=== PATIENT | female | born 1975 | race Caucasian/White ===

== ENCOUNTER → 2017-05-08 | Outpatient (CLI) | payer OTHER ==
[~2017-05-08] MED LIST: 'BUSPAR5 MG PO; ADVAIR 250/501 EA INH; AMOXICILLIN500 MG PO; CLARITIN10 MG PO; CORDROL20 MG PO; DARVOCET N 1001 TAB PO; INDOMETHACIN50 MG PO; MEDROL DOSEPAK4 MG PO; MOTRIN800 MG PO; OMEPRAZOLE40 MG PO; PROAIR HFA8.5 GM IH; PROVENTIL0.09 MG/AC IH; RANITIDINE HYD300 MG PO; ZITHROMAX Z PA250 MG PO; Zofran4 MG PO
== END | disposition home or self-care (01) ==
LOC: US 12:48
DX: N94.6 Dysmenorrhea, unspecified (principal)

== ENCOUNTER → 2017-05-19 | Outpatient (CLI) | payer OTHER | END | disposition home or self-care (01) | LOC: RAD 13:20 | DX: M54.42 Lumbago with sciatica, left side (principal) ==

== ENCOUNTER → 2017-06-05 | Outpatient (CLI) | payer OTHER ==
[~2017-06-05] MED LIST changes: +LISINOPRIL20 MG PO; +MULTIVITAMINS1 EAC5 PO; +POTASSIUM99 M5 PO; +PREDNISONE5 MG PO; +SYMB160 INH
--- NOTE | ~2017-06-05 | ST ---
[place], [place] EXERCISE STRESS TEST REPORT NAME: DEAN SO [facility] #: [id number] UNIT #: [id number] ROOM: DOCTOR: LON CLINE MD BIRTHDATE: [birth year] DOS: 06/05/2017 INDICATIONS: Central chest pain. PROCEDURE: The patient walked for 9 minutes 55 seconds on a full Aric protocol stress test and stopped for fatigue. She achieved a maximum heart rate of 159, which represented 89% of her maximum predicted heart rate at a workload of 10 mets. She did not have chest pain with exercise. The resting and stress electrocardiograms were normal and recovery was normal. Her heart rate increased from 71-159. Blood pressure at rest was 134/80 and increased to 166/88. The Patrick treadmill score was 10 consistent with a low probability of heart disease. IMPRESSION: 1. Excellent exercise capacity without chest pain or diagnostic electrocardiographic changes. 2. Low risk standard stress test without imaging. LON CLINE MD CM:STRESS:EXERCISE STRESS TEST REPORT [id number] LON CLINE MD
--- NOTE | 2017-06-05 10:30 | NUR ---
INFORMED SIGNED CONSENT OBTAINED FOR STANDARD GXT WITH DR CLINE. RESTING EKG NSR HR 71 BP 148/80 IN SUPINE POSITION, STANDING HR 68 BP 134/80. PT COMPLETED 9:55 OF A FRANCIS PROTOCOL WITH PT COMPLETING 0:55 SEC OF STAGE IV AT 4.2 MPH AND A 16% GRADE. PT REACHED A MAXIMUM HR OF 159 WHICH REPRESENTS 89% OF PREDICTED MAXIMUM AND A PEAK BP OF 166/88. NO ARRYTHMIAS OR ST CHANGES NOTED. TEST TERMINATED DUE TO FATIGUE. LAST BP OF 134/72 AND HR OF 94. PT IN STABLE CONDITION, AWAITING NUCLEAR IMAGES.
[2017-06-05 10:39] LABS: BUN 7 mg/dl (7-24); CHLORIDE 108 mmol/L (98-107); CREATININE 0.68 mg/dL (0.55-1.02); POTASSIUM 3.9 mmol/L (3.5-5.1); SODIUM 141 mmol/L (136-145)
== END | disposition home or self-care (01) ==
LOC: LAB 00:20 → CARD 09:00
PROVIDERS: Internal Medicine Cardiovascular Disease
DX: I10 Essential (primary) hypertension (principal); R07.9 Chest pain, unspecified; R01.1 Cardiac murmur, unspecified

== ENCOUNTER → 2017-06-16 | Outpatient (CLI) | payer OTHER | LOC: CARD 14:51 | DX: I10 Essential (primary) hypertension (principal); R01.1 Cardiac murmur, unspecified; E07.9 Disorder of thyroid, unspecified ==

== ENCOUNTER 2018-02-22 11:34 | Emergency (ER) | payer OTHER ==
[~2018-02-22] VITALS: Ht 157.4 cm; Wt 90.7 kg
[2018-02-22] MEDS ORDERED: CHLORZOXAZONE500 M2 PO (12:14)
[2018-02-22] MEDS ORDERED: NAPROSYN500 MG PO (12:14)
== END 2018-02-22 14:17 | disposition home or self-care (01) ==
LOC: ED 11:34
DX: S30.0XXA Contusion of lower back and pelvis, initial encounter (principal); R03.0 Elevated blood-pressure reading, without diagnosis of hypertension; Z79.899 Other long term (current) drug therapy; W10.8XXA Fall (on) (from) other stairs and steps, initial encounter; Y93.89 Activity, other specified; Y92.89 Other specified places as the place of occurrence of the external cause; Y99.8 Other external cause status

== ENCOUNTER 2018-07-16 13:04 | Emergency (ER) | payer OTHER ==
--- NOTE | ~2018-07-16 | EKG ---
[place], [place] ELECTROCARDIOGRAM REPORT NAME: DEAN SO UNIT #: [id number] ROOM: DOCTOR: EPIPHANY DRAFT REPORT BIRTHDATE: [birth year] [facility] Test Date: 2018-07-16 Test Time: 13:10:42 Pat Name: DEAN SO Department: Room: Gender: F Service Clerk: Gladys Guerrero : 1975 Requested By: MARKEL BRANDON Order Number: [id number] Reading MD: Kenan Rod MD Measurements Intervals [place] Rate: 75 P: 36 [place]: 135 QRS: 2 QRSD: 84 T: 5 QT: 361 QTc: 404 Interpretive Statements Sinus rhythm No previous ECG available for comparison Electronically Signed On 07-16-2018 19:42:53 PST by Kenan Rod MD CM:EKGRPT:ELECTROCARDIOGRAM REPORT [id number] MARKEL GOLD DRAFT REPORT MARKEL BRANDON M.D.
[~2018-07-16 13:04] MED LIST changes: +CHLORZOXAZONE500 M2 PO; +NAPROSYN500 MG PO
[2018-07-16 13:30] LABS: BASO # 0.1 10*3/uL (0.0-0.1); BASO % 0.5 % (0.0-1.0); EOS # 0.4 10*3/uL (0.0-0.4); EOS % 3.2 % (1.0-4.0); HEMATOCRIT 35.9 % (37.0-47.0); HEMOGLOBIN 11.8 g/dl (12.0-16.0); LYMPH # 2.4 10*3/uL (1.3-4.4); MEAN CELL VOLUME 86.7 fl (81.0-99.0); MEAN CORPUSCULAR HGB 28.5 pg (27.0-31.0); MEAN CORPUSCULAR HGB CONC 32.9 g/dl (33.0-37.0); MEAN PLATELET VOLUME 8.9 fl (9.6-12.3); MONO # 0.7 10*3/uL (0.1-1.0); MONO % 5.4 % (3.0-9.0); NEUT # 9.2 10*3/uL (2.3-7.9); NEUT % 71.7 % (47.0-73.0); PLATELET COUNT AUTOMATED 362 10*3/uL (130-400); RED BLOOD COUNT 4.14 10*6/uL (4.10-5.10); RED CELL DISTRI WIDTH 13.1 % (0-14.5); WHITE BLOOD COUNT 12.8 10*3/uL (4.8-10.8)
[2018-07-16 13:50] LABS: ALBUMIN 3.3 gm/dl (3.1-4.5); ALKALINE PHOSPHATASE 106 U/L (45-117); BUN 14 mg/dl (7-24); CHLORIDE 108 mmol/L (98-107); CREATININE 0.67 mg/dL (0.55-1.02); SGOT/AST 15 IU/L (3-35); SGPT/ALT 29 U/L (12-78); SODIUM 141 mmol/L (136-145); TOTAL PROTEIN 6.7 gm/dL (6.4-8.2)
[2018-07-16 13:52] LABS: TROPONIN I < 0.015 ng/ml (<0.045)
== END 2018-07-16 14:01 | disposition home or self-care (01) ==
LOC: ED 13:04
PROVIDERS: Nurse Practitioner Family
DX: Z03.89 Encounter for observation for other suspected diseases and conditions ruled out (principal); R03.0 Elevated blood-pressure reading, without diagnosis of hypertension; Z79.899 Other long term (current) drug therapy

== ENCOUNTER → 2018-08-03 | Outpatient (CLI) | payer OTHER | END | disposition home or self-care (01) | LOC: RAD 12:13 | DX: J20.9 Acute bronchitis, unspecified (principal); J45.909 Unspecified asthma, uncomplicated ==

== ENCOUNTER → 2019-06-06 | Outpatient (CLI) | payer OTHER | END | disposition home or self-care (01) | LOC: CT 12:58 | DX: S06.9X9A Unspecified intracranial injury with loss of consciousness of unspecified duration, initial encounter (principal); R51 Headache; R55 Syncope and collapse; W19.XXXA Unspecified fall, initial encounter; Y93.89 Activity, other specified; Y92.89 Other specified places as the place of occurrence of the external cause; Y99.8 Other external cause status ==

== ENCOUNTER 2019-06-16 09:25 | Inpatient (IN) | payer OTHER ==
[~2019-06-16] VITALS: Ht 157.4 cm; Wt 89.0 kg
[2019-06-16 09:26] VITALS: BP 142/80
[2019-06-16 10:06] LABS: BASO % 0.3 % (0.0-1.0); EOS # 0.2 10*3/uL (0.0-0.4); EOS % 1.4 % (1.0-4.0); HEMOGLOBIN 13.5 g/dl (12.0-16.0); LYMPH # 1.7 10*3/uL (1.3-4.4); LYMPH % 13.4 % (27.0-41.0); MEAN CELL VOLUME 87.5 fl (81.0-99.0); MEAN CORPUSCULAR HGB 28.1 pg (27.0-31.0); MEAN CORPUSCULAR HGB CONC 32.1 g/dl (33.0-37.0); MEAN PLATELET VOLUME 9.3 fl (9.6-12.3); MONO # 0.6 10*3/uL (0.1-1.0); MONO % 4.9 % (3.0-9.0); NEUT # 10.3 10*3/uL (2.3-7.9); NEUT % 79.7 % (47.0-73.0); PLATELET COUNT AUTOMATED 340 10*3/uL (130-400); RED CELL DISTRI WIDTH 13.3 % (0-14.5)
[2019-06-16 10:19] LABS: ACT PARTIAL THROMBO TIME 24.7 SECONDS (20.0-32.1); INTERNATIONAL NORM RATIO 0.9 (2.0-3.5)
[2019-06-16 10:26] LABS: ALBUMIN 3.6 gm/dl (3.1-4.5); BUN 8 mg/dl (7-24); CHLORIDE 109 mmol/L (98-107); CREATININE 0.78 mg/dL (0.55-1.02); LIPASE 58 U/L (73-393); POTASSIUM 3.5 mmol/L (3.5-5.1); SGOT/AST 20 IU/L (3-35); SGPT/ALT 41 U/L (12-78); SODIUM 143 mmol/L (136-145); TOTAL PROTEIN 7.2 gm/dL (6.4-8.2)
[2019-06-16 10:27] LABS: ALKALINE PHOSPHATASE 124 U/L (45-117)
[2019-06-16 11:11] LABS: BILIRUBIN NEGATIVE (NEGATIVE); BLOOD NEGATIVE (NEGATIVE); COLOR YELLOW (YELLOW); GLUCOSE NEGATIVE (NEGATIVE); KETONE NEGATIVE (NEGATIVE); LEUKO ESTERASE NEGATIVE (NEGATIVE); NITRITE NEGATIVE (NEGATIVE); PH 6.5 (5.0-9.0); SPECIFIC GRAVITY <= 1.005 (1.005-1.030); UROBILINOGEN 0.2 E.U./dl (0.2-1.0)
[2019-06-16 11:12] LABS: CLARITY CLEAR (CLEAR)
[2019-06-16 11:28] LABS: BACTERIA 1+
[2019-06-16 11:50] LABS: TROPONIN I < 0.015 ng/ml (<0.045)
[2019-06-16] MEDS ORDERED: LIPITOR10 MG PO (13:28)
[2019-06-16] MEDS ORDERED: IRON325 M1 PO (13:29)
[2019-06-16] MEDS ORDERED: OMEPRAZOLE40 MG PO (13:32)
[2019-06-16] MEDS ORDERED: CALCIUM500 M1 PO (13:33)
[2019-06-16] MEDS ORDERED: FISH OIL 1,0001 EAC2 PO (13:33)
[2019-06-16 13:45] VITALS: BP 159/67
--- NOTE | 2019-06-16 13:55 | NUR ---
A 43, admitted to , under the services of VERNON Majano DO with a diagnosis of SYNCOPE AND COLLAPSE. Chief complaint is SYNCOPE AND COLLAPSE. Patient arrived via stretcher from ER. Monitor applied. Initial assessment completed. Vital signs taken and recorded. VERNON MAJANO DO notified of admission to the unit. Orders received. See assessment for past medical history, medications and allergies. Patient and/or family oriented to unit. [address] visitation policy reviewed. Clothing/patient valuable form completed. JENN VALLADARES
[2019-06-16 16:00] VITALS: BP 134/86
[2019-06-16 20:00] VITALS: BP 151/88
--- NOTE | 2019-06-16 20:31 | NUR ---
PT MEDICATED W/NORCO FOR C/O H/A AND RT EYE PAIN 11/22. RT EYE BLACK AND SWOLLEN. NO C/O DIZZINESS AT PRESENT TIME. CALL LIGHT IN REACH.
[2019-06-17] VITALS: BP 148/68
--- NOTE | 2019-06-17 04:42 | NUR ---
24 HR chart check completed.
[2019-06-17 05:59] LABS: BASO # 0.1 10*3/uL (0.0-0.1); BASO % 0.4 % (0.0-1.0); EOS # 0.3 10*3/uL (0.0-0.4); EOS % 2.3 % (1.0-4.0); HEMATOCRIT 38.8 % (37.0-47.0); HEMOGLOBIN 12.3 g/dl (12.0-16.0); LYMPH # 2.6 10*3/uL (1.3-4.4); LYMPH % 21.7 % (27.0-41.0); MEAN CELL VOLUME 88.8 fl (81.0-99.0); MEAN CORPUSCULAR HGB 28.1 pg (27.0-31.0); MEAN CORPUSCULAR HGB CONC 31.7 g/dl (33.0-37.0); MEAN PLATELET VOLUME 9.9 fl (9.6-12.3); MONO # 0.8 10*3/uL (0.1-1.0); MONO % 6.4 % (3.0-9.0); NEUT # 8.2 10*3/uL (2.3-7.9); NEUT % 68.9 % (47.0-73.0); PLATELET COUNT AUTOMATED 308 10*3/uL (130-400); RED BLOOD COUNT 4.37 10*6/uL (4.10-5.10); RED CELL DISTRI WIDTH 13.7 % (0-14.5); WHITE BLOOD COUNT 11.9 10*3/uL (4.8-10.8)
[2019-06-17 06:11] LABS: BUN 10 mg/dl (7-24); CHLORIDE 115 mmol/L (98-107); CHOLESTEROL 160 mg/dL (<200); CREATININE 0.71 mg/dL (0.55-1.02); HDL CHOLESTEROL 44 mg/dl (40-60); LDL CHOLESTEROL 98 mg/dL (9-159); POTASSIUM 3.7 mmol/L (3.5-5.1); SODIUM 148 mmol/L (136-145); TRIGLYCERIDES 92 mg/dl (<150); VLDL CHOLESTEROL 18 mg/dL (6-40)
[2019-06-17 06:38] LABS: ACT PARTIAL THROMBO TIME 26.1 SECONDS (20.0-32.1); INTERNATIONAL NORM RATIO 0.9 (2.0-3.5)
[2019-06-17 07:08] LABS: VITAMIN D, 25-HYDROXY 37.6 ng/mL (30-100)
--- NOTE | 2019-06-17 07:54 | NUR ---
PHYSICAL THERAPY Screen received as well as orders for PT will follow thank you Bailee Madison PT
[2019-06-17 08:00] VITALS: BP 152/86
--- NOTE | 2019-06-17 09:22 | NUR ---
ORTHO STATIC BP NEGATIVE. NOTIFIED.
[2019-06-17 12:00] VITALS: BP 144/84
--- NOTE | 2019-06-17 12:48 | NUR ---
Production Aide in to talk to patient. Patient states lives at HOME with MOTHER. There are OUTSIDE steps in the home. Physician: FERMIN Pharmacy: [facility] health services: NONE Patient's level of ADLs: INDEPENDENT Patient has working utilities: YES DME: NONE Follow-up physician's appointment after d/c: WILL BE MADE BY HOSPITALIST NURSE DIRECTOR ON DISCHARGE Does patient want to access PORTAL?: NO Discharge plan PT LIVES AT HOME WITH MOTHER AND IS INDEPENDENT IN HER CARE. DENEIS SHE WILL HAVE ANY NEEDS ON DISCAHRGE. PT PLANS TO RETURN HOME WHEN MEDICALLY STABLE. WILL CONTINUE TO FOLLOW. WILL HAVE A RIDE HOME ON DISCHARGE.. CECILE SINHA
--- NOTE | 2019-06-17 13:40 | NUR ---
Discharge instructions reviewed with patient/family. Patient receptive and verbalizes understanding. Follow-up care arranged. Written instructions given to patient/family. GALEN FERGUSON
== END 2019-06-17 13:40 | disposition home or self-care (01) | DRG 204 ==
LOC: ED 09:25 → EDHOLD 11:59 → 4E 11:59
PROVIDERS: Nurse Practitioner Family; ADMIT Internal Medicine
DX: I95.1 Orthostatic hypotension (principal); I10 Essential (primary) hypertension; E78.5 Hyperlipidemia, unspecified; R00.1 Bradycardia, unspecified; M43.02 Spondylolysis, cervical region; D72.829 Elevated white blood cell count, unspecified; E55.9 Vitamin D deficiency, unspecified; Z91.02 Food additives allergy status; Z82.49 Family history of ischemic heart disease and other diseases of the circulatory system; Z83.3 Family history of diabetes mellitus; Z82.5 Family history of asthma and other chronic lower respiratory diseases; R00.2 Palpitations

== ENCOUNTER 2020-04-05 11:27 | Emergency (ER) | payer OTHER ==
[~2020-04-05] VITALS: Wt 87.5 kg
== END 2020-04-05 14:03 | disposition home or self-care (01) ==
LOC: ED 11:27
DX: T78.40XA Allergy, unspecified, initial encounter (principal); Z79.899 Other long term (current) drug therapy; X58.XXXA Exposure to other specified factors, initial encounter

== ENCOUNTER 2020-10-23 06:45 | Emergency (ER) | payer OTHER ==
[~2020-10-23] VITALS: Ht 162.5 cm; Wt 86.2 kg
[~2020-10-23 06:45] MED LIST changes: +CALCIUM500 M1 PO; +FISH OIL 1,0001 EAC2 PO; +IRON325 M1 PO; +LIPITOR10 MG PO; +PREDNISONE50 MG PO
== END 2020-10-23 07:07 | disposition home or self-care (01) ==
LOC: ED 06:45
DX: L23.7 Allergic contact dermatitis due to plants, except food (principal); Z91.018 Allergy to other foods; Z79.899 Other long term (current) drug therapy; Z98.890 Other specified postprocedural states

== ENCOUNTER → 2021-06-06 | Outpatient (CLI) | payer OTHER | END | disposition home or self-care (01) | LOC: US 09:59 → MAMMO 11:00 | PROVIDERS: ATTEND Obstetrics & Gynecology | DX: Z12.31 Encounter for screening mammogram for malignant neoplasm of breast (principal); N92.6 Irregular menstruation, unspecified ==

== ENCOUNTER 2021-06-15 10:25 | Emergency (ER) | payer OTHER ==
[~2021-06-15] VITALS: Wt 93.4 kg
[2021-06-15 10:59] LABS: BASO # 0.1 10*3/uL (0.0-0.1); BASO % 0.4 % (0.0-1.0); EOS # 0.2 10*3/uL (0.0-0.4); EOS % 1.9 % (1.0-4.0); HEMATOCRIT 39.7 % (37.0-47.0); LYMPH # 2.2 10*3/uL (1.3-4.4); LYMPH % 17.6 % (27.0-41.0); MEAN CELL VOLUME 86.1 fl (81.0-99.0); MEAN CORPUSCULAR HGB 27.1 pg (27.0-31.0); MEAN CORPUSCULAR HGB CONC 31.5 g/dl (33.0-37.0); MEAN PLATELET VOLUME 8.8 fl (9.6-12.3); MONO # 0.6 10*3/uL (0.1-1.0); MONO % 4.7 % (3.0-9.0); NEUT # 9.2 10*3/uL (2.3-7.9); NEUT % 75.1 % (47.0-73.0); PLATELET COUNT AUTOMATED 354 10*3/uL (130-400); RED BLOOD COUNT 4.61 10*6/uL (4.10-5.10); RED CELL DISTRI WIDTH 13.3 % (0-14.5); WHITE BLOOD COUNT 12.3 10*3/uL (4.8-10.8)
[2021-06-15 11:12] LABS: BUN 11 mg/dl (7-24); CHLORIDE 110 mmol/L (98-107); CREATININE 0.73 mg/dL (0.55-1.02); POTASSIUM 4.5 mmol/L (3.5-5.1); SODIUM 141 mmol/L (136-145)
== END 2021-06-15 11:46 | disposition home or self-care (01) ==
LOC: ED 10:25
PROVIDERS: Emergency Medicine
DX: N93.8 Other specified abnormal uterine and vaginal bleeding (principal); E78.5 Hyperlipidemia, unspecified; I10 Essential (primary) hypertension; Z79.899 Other long term (current) drug therapy

== ENCOUNTER → 2021-06-27 | Outpatient (CLI) | payer OTHER | LOC: US 10:45 | PROVIDERS: ATTEND Obstetrics & Gynecology | DX: N63.0 Unspecified lump in unspecified breast (principal); R92.8 Other abnormal and inconclusive findings on diagnostic imaging of breast ==

== ENCOUNTER → 2022-09-22 | Outpatient (CLI) | payer OTHER | END | disposition home or self-care (01) | LOC: COVID19 09:27 | PROVIDERS: ATTEND Internal Medicine | DX: Z20.822 Contact with and (suspected) exposure to COVID-19 (principal) ==

== ENCOUNTER 2023-08-03 14:31 | Emergency (ER) | payer OTHER ==
[~2023-08-03] VITALS: Ht 157.4 cm; Wt 88.9 kg
[2023-08-03] MEDS ORDERED: LISINOPRIL10 M1 PO (15:16)
[2023-08-03] MEDS ORDERED: Dexamethasone Sodium Phospha 20 MG/5 ML VIAL IM ONE (16:45)
[2023-08-03] MEDS ORDERED: KENALOG 0.1%80 GM T (16:48)
[2023-08-03] MEDS ORDERED: PREDNISONE20 M1 PO (16:48)
[2023-08-03] MEDS ORDERED: diphenhydrAMINE hydrochloride 50 MG/ML VIAL IM ONE (16:50)
== END 2023-08-03 17:36 | disposition home or self-care (01) ==
LOC: ED 14:31
DX: L25.9 Unspecified contact dermatitis, unspecified cause (principal); J45.909 Unspecified asthma, uncomplicated; E78.00 Pure hypercholesterolemia, unspecified; M10.9 Gout, unspecified; K21.9 Gastro-esophageal reflux disease without esophagitis; Z91.013 Allergy to seafood; Z91.018 Allergy to other foods; Z98.890 Other specified postprocedural states

== ENCOUNTER 2023-11-23 08:55 | Emergency (ER) | payer OTHER ==
[~2023-11-23] VITALS: Ht 157.4 cm; Wt 88.9 kg
[~2023-11-23 08:55] MED LIST changes: +KENALOG 0.1%80 GM T; +LISINOPRIL10 M1 PO; +PREDNISONE20 M1 PO
[2023-11-23] MEDS ORDERED: BIOTIN5000 MC2 PO (09:07)
[2023-11-23] MEDS ORDERED: IBU400 M1 PO (09:08)
[2023-11-23] MEDS ORDERED: VENT7GM INH (10:25)
[2023-11-23] MEDS ORDERED: PREDNISONE10 MG PO (10:25)
== END 2023-11-23 10:38 | disposition home or self-care (01) ==
LOC: ED 08:55
DX: J45.901 Unspecified asthma with (acute) exacerbation (principal); Z20.822 Contact with and (suspected) exposure to COVID-19; B34.9 Viral infection, unspecified; K21.9 Gastro-esophageal reflux disease without esophagitis; M10.9 Gout, unspecified; Z88.8 Allergy status to other drugs, medicaments and biological substances; Z91.013 Allergy to seafood; Z98.890 Other specified postprocedural states

== ENCOUNTER → 2024-07-25 | Outpatient (CLI) | payer OTHER ==
[~2024-07-25] MED LIST changes: +BIOTIN5000 MC2 PO; +IBU400 M1 PO; +PREDNISONE10 MG PO; +VENT7GM INH
[2024-07-25 14:19] LABS: BASO # 0.1 10*3/uL (0.0-0.1); BASO % 0.5 % (0.0-1.0); EOS # 0.4 10*3/uL (0.0-0.4); EOS % 2.6 % (1.0-4.0); HEMATOCRIT 40.2 % (37.0-47.0); MEAN CORPUSCULAR HGB 27.5 pg (27.0-31.0); MEAN CORPUSCULAR HGB CONC 31.6 g/dl (33.0-37.0); MEAN PLATELET VOLUME 8.9 fl (9.6-12.3); MONO # 0.7 10*3/uL (0.1-1.0); MONO % 5.1 % (3.0-9.0); NEUT # 10.4 10*3/uL (2.3-7.9); PLATELET COUNT AUTOMATED 344 10*3/uL (130-400); RED BLOOD COUNT 4.62 10*6/uL (4.10-5.10); RED CELL DISTRI WIDTH 13.2 % (0-14.5); WHITE BLOOD COUNT 14.1 10*3/uL (4.8-10.8)
[2024-07-25 14:53] LABS: ALKALINE PHOSPHATASE 109 U/L (46-116); BUN 11 mg/dl (9-23); CHLORIDE 106 mmol/L (98-107); CHOLESTEROL 209 mg/dL (<200); LDL CHOLESTEROL 110 mg/dL (9-159); POTASSIUM 4.1 mmol/L (3.4-5.1); SGPT/ALT 20 U/L (5-49); TRIGLYCERIDES 255 mg/dl (<150)
[2024-07-25 14:55] LABS: VITAMIN D, 25-HYDROXY 38.2 ng/mL (30-100)
== END | disposition home or self-care (01) ==
LOC: RESCLI 13:02
PROVIDERS: Student in an Organized Health Care Education/Training Program; ATTEND Family Medicine
DX: J45.909 Unspecified asthma, uncomplicated (principal); I10 Essential (primary) hypertension; R53.83 Other fatigue; L29.9 Pruritus, unspecified; K21.9 Gastro-esophageal reflux disease without esophagitis; E78.5 Hyperlipidemia, unspecified; E56.9 Vitamin deficiency, unspecified; M19.90 Unspecified osteoarthritis, unspecified site; Z79.899 Other long term (current) drug therapy; Z88.8 Allergy status to other drugs, medicaments and biological substances

== ENCOUNTER 2024-09-11 16:25 | Emergency (ER) | payer OTHER ==
[2024-09-11] MEDS ORDERED: ACETAMINOPHEN 325 MG TAB PO ONE (16:45)
[2024-09-11] MEDS ORDERED: NAPROSYN500 MG PO (17:40)
== END 2024-09-11 17:50 | disposition home or self-care (01) ==
LOC: ED 16:25
DX: S56.912A Strain of unspecified muscles, fascia and tendons at forearm level, left arm, initial encounter (principal); Z91.018 Allergy to other foods; Z79.899 Other long term (current) drug therapy; X50.3XXA Overexertion from repetitive movements, initial encounter; Y93.89 Activity, other specified; Y92.89 Other specified places as the place of occurrence of the external cause; Y99.8 Other external cause status

== ENCOUNTER → 2024-09-20 | Outpatient (CLI) | payer OTHER | END | disposition home or self-care (01) | LOC: MAMMO 03:23 | PROVIDERS: ATTEND Nurse Practitioner Women's Health | DX: Z12.31 Encounter for screening mammogram for malignant neoplasm of breast (principal); R92.323 Mammographic fibroglandular density, bilateral breasts; R10.2 Pelvic and perineal pain ==

== ENCOUNTER → 2024-09-28 | Outpatient (CLI) | payer OTHER | END | disposition home or self-care (01) | LOC: RESCLI 01:19 | PROVIDERS: ATTEND Internal Medicine | DX: M19.90 Unspecified osteoarthritis, unspecified site (principal); I10 Essential (primary) hypertension; K21.9 Gastro-esophageal reflux disease without esophagitis; J30.81 Allergic rhinitis due to animal (cat) (dog) hair and dander; E56.9 Vitamin deficiency, unspecified; E78.5 Hyperlipidemia, unspecified; L29.9 Pruritus, unspecified ==

== ENCOUNTER 2024-11-19 21:07 | Emergency (ER) | payer OTHER ==
[~2024-11-19] VITALS: Ht 157.4 cm; Wt 89.8 kg
[2024-11-19] MEDS ORDERED: METHOCARBAMOL750 M1 PO (21:43)
[2024-11-19] MEDS ORDERED: Acetaminophen/Hydrocodone 5 MG/325 MG TABLET PO ONE (21:45)
== END 2024-11-19 21:54 | disposition home or self-care (01) ==
LOC: ED 21:07
DX: S39.011A Strain of muscle, fascia and tendon of abdomen, initial encounter (principal); J45.909 Unspecified asthma, uncomplicated; E78.5 Hyperlipidemia, unspecified; I10 Essential (primary) hypertension; Z91.048 Other nonmedicinal substance allergy status; Z79.899 Other long term (current) drug therapy; Z98.890 Other specified postprocedural states; X50.0XXA Overexertion from strenuous movement or load, initial encounter; Y93.89 Activity, other specified; Y92.89 Other specified places as the place of occurrence of the external cause; Y99.8 Other external cause status

== ENCOUNTER 2024-12-31 16:17 | Emergency (ER) | payer OTHER ==
[~2024-12-31] VITALS: Ht 157.4 cm; Wt 89.4 kg
[~2024-12-31 16:17] MED LIST changes: +METHOCARBAMOL750 M1 PO
[2024-12-31 17:10] LABS: BASO # 0.1 10*3/uL (0.0-0.1); BASO % 0.4 % (0.0-1.0); EOS # 0.2 10*3/uL (0.0-0.4); EOS % 1.7 % (1.0-4.0); MEAN CELL VOLUME 86.3 fl (81.0-99.0); MEAN CORPUSCULAR HGB 27.6 pg (27.0-31.0); MEAN PLATELET VOLUME 9.2 fl (9.6-12.3); MONO # 0.6 10*3/uL (0.1-1.0); MONO % 4.5 % (3.0-9.0); NEUT # 9.4 10*3/uL (2.3-7.9); NEUT % 76.8 % (47.0-73.0); NUCLEATED RED BLOOD CELL 0.0 % (0.0-0.0); NUCLEATED RED BLOOD CELL 0.0 10*3/uL (0.0-0.0); PLATELET COUNT AUTOMATED 308 10*3/uL (130-400); RED CELL DISTRI WIDTH 13.4 % (0-14.5)
[2024-12-31 17:35] LABS: BUN 13 mg/dl (9-23); SGPT/ALT 22 U/L (5-49)
[2024-12-31 17:36] LABS: ETHYL ALCOHOL < 3.0 mg/dl (<3)
[2024-12-31 18:01] LABS: BILIRUBIN Negative (Negative); BLOOD Negative (Negative); CLARITY Clear (Clear); COLOR Yellow (Yellow); KETONE Negative (Negative); LEUKO ESTERASE Negative (Negative); NITRITE Negative (Negative); PH 6.5 (4.5-8.0); SPECIFIC GRAVITY 1.015 (1.001-1.030); UROBILINOGEN 0.2 E.U./dl (0.0-1.0)
[2024-12-31 18:09] LABS: URINE AMPHETAMINES Negative (1000ng/ml); URINE BARBITURATES Negative (200ng/ml); URINE BENZODIAZEPINES Negative (200ng/ml); URINE CANNABINOIDS (THC) Negative (50ng/ml); URINE COCAINE Negative (300ng/ml); URINE METHADONE Negative (300ng/ml); URINE OPIATES Negative (300ng/ml); URINE PHENCYCLIDINE Negative (25ng/ml)
[2024-12-31 18:13] LABS: WBC 0-2 wbc/hpf (0-5)
[2024-12-31 18:14] LABS: BACTERIA 3+; MUCOUS 1+
[2024-12-31] MEDS ORDERED: CIPRO500 MG PO (18:47)
[2024-12-31] MEDS ORDERED: Ciprofloxacin Hydrochloride 500 MG TAB PO ONE (18:50)
== END 2024-12-31 18:51 | disposition home or self-care (01) ==
LOC: ED 16:17
PROVIDERS: Internal Medicine
DX: N39.0 Urinary tract infection, site not specified (principal); J45.909 Unspecified asthma, uncomplicated; K21.9 Gastro-esophageal reflux disease without esophagitis; Z79.899 Other long term (current) drug therapy; Z98.890 Other specified postprocedural states

== ENCOUNTER → 2025-01-04 | Outpatient (CLI) | payer OTHER ==
[~2025-01-04] MED LIST changes: +CIPRO500 MG PO
== END | disposition home or self-care (01) ==
LOC: RESCLI 14:45
PROVIDERS: ATTEND Internal Medicine
DX: L29.9 Pruritus, unspecified (principal); M19.90 Unspecified osteoarthritis, unspecified site; E78.5 Hyperlipidemia, unspecified; J30.81 Allergic rhinitis due to animal (cat) (dog) hair and dander; E56.9 Vitamin deficiency, unspecified; G70.00 Myasthenia gravis without (acute) exacerbation; G45.9 Transient cerebral ischemic attack, unspecified; I10 Essential (primary) hypertension; Z79.899 Other long term (current) drug therapy; Z98.890 Other specified postprocedural states; Z88.8 Allergy status to other drugs, medicaments and biological substances

== ENCOUNTER 2025-01-10 17:13 | Emergency (ER) | payer OTHER ==
[~2025-01-10] VITALS: Ht 157.4 cm; Wt 87.5 kg
[2025-01-10 18:17] LABS: BASO # 0.1 10*3/uL (0.0-0.1); BASO % 0.5 % (0.0-1.0); EOS # 0.2 10*3/uL (0.0-0.4); EOS % 1.9 % (1.0-4.0); MEAN CELL VOLUME 84.6 fl (81.0-99.0); MEAN CORPUSCULAR HGB 27.2 pg (27.0-31.0); MEAN PLATELET VOLUME 8.9 fl (9.6-12.3); MONO # 0.6 10*3/uL (0.1-1.0); MONO % 5.8 % (3.0-9.0); NEUT # 8.1 10*3/uL (2.3-7.9); NEUT % 74.8 % (47.0-73.0); NUCLEATED RED BLOOD CELL 0.0 % (0.0-0.0); NUCLEATED RED BLOOD CELL 0.0 10*3/uL (0.0-0.0); PLATELET COUNT AUTOMATED 326 10*3/uL (130-400); RED CELL DISTRI WIDTH 13.2 % (0-14.5)
[2025-01-10 18:43] LABS: BUN 9 mg/dl (9-23)
[2025-01-10 19:38] LABS: BILIRUBIN Negative (Negative); BLOOD Negative (Negative); CLARITY Clear (Clear); COLOR Yellow (Yellow); KETONE Negative (Negative); LEUKO ESTERASE Negative (Negative); NITRITE Negative (Negative); PH 7.0 (4.5-8.0); SPECIFIC GRAVITY 1.010 (1.001-1.030); UROBILINOGEN 0.2 E.U./dl (0.0-1.0)
== END 2025-01-10 20:27 | disposition home or self-care (01) ==
LOC: ED 17:13
PROVIDERS: Nurse Practitioner Family
DX: R20.2 Paresthesia of skin (principal); Z98.890 Other specified postprocedural states; Z91.013 Allergy to seafood

== ENCOUNTER → 2025-01-13 | Outpatient (CLI) | payer OTHER | END | disposition home or self-care (01) | LOC: MRI 07:35 | PROVIDERS: ATTEND Family Medicine | DX: G45.9 Transient cerebral ischemic attack, unspecified (principal) ==

== ENCOUNTER 2025-01-27 16:45 | Observation (INO) | payer OTHER ==
[~2025-01-27] VITALS: Ht 157.5 cm; Wt 88.5 kg
[2025-01-27 17:02] VITALS: BP 136/95
[2025-01-27] MEDS ORDERED: SODIUM CHLORIDE 0.9% 1,000 ML IV ONE (17:05)
[2025-01-27 18:01] LABS: BASO # 0.1 10*3/uL (0.0-0.1); BASO % 0.6 % (0.0-1.0); EOS # 0.2 10*3/uL (0.0-0.4); EOS % 1.9 % (1.0-4.0); MEAN CELL VOLUME 86.5 fl (81.0-99.0); MEAN CORPUSCULAR HGB 28.0 pg (27.0-31.0); MEAN PLATELET VOLUME 9.3 fl (9.6-12.3); MONO # 0.8 10*3/uL (0.1-1.0); MONO % 7.0 % (3.0-9.0); NEUT # 8.1 10*3/uL (2.3-7.9); NEUT % 69.5 % (47.0-73.0); NUCLEATED RED BLOOD CELL 0.0 % (0.0-0.0); NUCLEATED RED BLOOD CELL 0.0 10*3/uL (0.0-0.0); PLATELET COUNT AUTOMATED 305 10*3/uL (130-400); RED CELL DISTRI WIDTH 13.7 % (0-14.5)
[2025-01-27] MEDS ORDERED: ASPIRIN 325 MG TAB PO ONE (18:05)
[2025-01-27] MEDS ORDERED: Clopidogrel Hydrogen Sulfate 75 MG TAB PO ONE (18:05)
[2025-01-27] MEDS ORDERED: ADVIL200 M1 PO (18:06)
[2025-01-27] MEDS ORDERED: MELATONIN3 MG PO (18:08)
[2025-01-27] MEDS ORDERED: TURMERIC500 M2 PO (18:08)
[2025-01-27] MEDS ORDERED: ATORVASTATIN CA10 M1 PO (18:09)
[2025-01-27 18:18] LABS: ACT PARTIAL THROMBO TIME 25.2 SECONDS (20.0-32.1)
[2025-01-27 18:24] LABS: BUN 15 mg/dl (9-23)
[2025-01-27] MEDS ORDERED: Ondansetron Hydrochloride 4 MG/2 ML VIAL IV PRN (18:25)
[2025-01-27] MEDS ORDERED: ACETAMINOPHEN 325 MG TAB PO PRN (18:25)
[2025-01-27] MEDS ORDERED: BISACODYL 10 MG SUPP R PRN (18:25)
[2025-01-27] MEDS ORDERED: BISACODYL 5 MG TAB PO PRN (18:25)
[2025-01-27] MEDS ORDERED: Acetaminophen/Hydrocodone 5 MG/325 MG TABLET PO PRN (18:25)
[2025-01-27] MEDS ORDERED: ACETAMINOPHEN 650 MG SUPP R PRN (18:25)
[2025-01-27 22:10] LABS: BILIRUBIN Negative (Negative); BLOOD Negative (Negative); CLARITY Clear (Clear); COLOR Yellow (Yellow); KETONE Trace (Negative); LEUKO ESTERASE Negative (Negative); NITRITE Negative (Negative); PH 5.5 (4.5-8.0); SPECIFIC GRAVITY 1.025 (1.001-1.030); UROBILINOGEN 1.0 E.U./dl (0.0-1.0)
[2025-01-27 22:17] LABS: BACTERIA 1+
[2025-01-27 22:18] LABS: URINE AMPHETAMINES Negative (1000ng/ml); URINE BARBITURATES Negative (200ng/ml); URINE BENZODIAZEPINES Negative (200ng/ml); URINE CANNABINOIDS (THC) Negative (50ng/ml); URINE COCAINE Negative (300ng/ml); URINE METHADONE Negative (300ng/ml); URINE OPIATES Negative (300ng/ml); URINE PHENCYCLIDINE Negative (25ng/ml)
[2025-01-27 23:10] VITALS: BP 124/78
[2025-01-28] MEDS ORDERED: METHOCARBAMOL 750 MG TAB PO PRN (00:40)
[2025-01-28] MEDS ORDERED: OMEPRAZOLE 20 MG CAP PO SCH (06:00)
[2025-01-28 06:04] LABS: BASO # 0.1 10*3/uL (0.0-0.1); BASO % 0.7 % (0.0-1.0); EOS # 0.3 10*3/uL (0.0-0.4); EOS % 2.5 % (1.0-4.0); MEAN CELL VOLUME 88.3 fl (81.0-99.0); MEAN CORPUSCULAR HGB 27.4 pg (27.0-31.0); MEAN PLATELET VOLUME 9.6 fl (9.6-12.3); MONO # 1.0 10*3/uL (0.1-1.0); MONO % 7.8 % (3.0-9.0); NEUT # 7.6 10*3/uL (2.3-7.9); NEUT % 62.1 % (47.0-73.0); NUCLEATED RED BLOOD CELL 0.0 % (0.0-0.0); NUCLEATED RED BLOOD CELL 0.0 10*3/uL (0.0-0.0); PLATELET COUNT AUTOMATED 277 10*3/uL (130-400); RED CELL DISTRI WIDTH 13.7 % (0-14.5)
[2025-01-28 06:15] LABS: BUN 14 mg/dl (9-23); LDL CHOLESTEROL 122 mg/dL (9-159)
[2025-01-28 08:00] VITALS: BP 113/72
[2025-01-28] MEDS ORDERED: CALCIUM (OSCAL) 500MG PO SCH (10:00)
[2025-01-28] MEDS ORDERED: LORATADINE 10 MG TAB PO SCH (10:00)
[2025-01-28] MEDS ORDERED: ATORVASTATIN CALCIUM 40 MG TABLET PO SCH (10:00)
[2025-01-28] MEDS ORDERED: ASPIRIN ENTERIC COATED 81 MG TAB PO SCH (10:00)
[2025-01-28] MEDS ORDERED: LISINOPRIL 20 MG TAB PO SCH (10:00)
[2025-01-28 11:57] VITALS: BP 111/53
[2025-01-28 16:00] VITALS: BP 94/55
[2025-01-28 20:00] VITALS: BP 116/75
[2025-01-28 23:55] VITALS: BP 105/68
[2025-01-29 06:13] LABS: BASO # 0.1 10*3/uL (0.0-0.1); BASO % 0.4 % (0.0-1.0); EOS # 0.3 10*3/uL (0.0-0.4); EOS % 2.3 % (1.0-4.0); MEAN CELL VOLUME 88.4 fl (81.0-99.0); MEAN CORPUSCULAR HGB 27.7 pg (27.0-31.0); MEAN PLATELET VOLUME 9.7 fl (9.6-12.3); MONO # 0.9 10*3/uL (0.1-1.0); MONO % 6.3 % (3.0-9.0); NEUT # 9.7 10*3/uL (2.3-7.9); NEUT % 70.2 % (47.0-73.0); NUCLEATED RED BLOOD CELL 0.0 % (0.0-0.0); NUCLEATED RED BLOOD CELL 0.0 10*3/uL (0.0-0.0); PLATELET COUNT AUTOMATED 290 10*3/uL (130-400); RED CELL DISTRI WIDTH 13.7 % (0-14.5)
[2025-01-29 08:00] VITALS: BP 110/63
[2025-01-29] MEDS ORDERED: LISINOPRIL 40 MG TAB PO SCH (10:00)
[2025-01-29 11:50] VITALS: BP 111/59
[2025-01-29 16:00] VITALS: BP 101/62
[2025-01-29 20:00] VITALS: BP 130/76
[2025-01-30] VITALS: BP 90/58
[2025-01-30 06:22] LABS: BASO # 0.1 10*3/uL (0.0-0.1); BASO % 0.4 % (0.0-1.0); EOS # 0.3 10*3/uL (0.0-0.4); EOS % 2.1 % (1.0-4.0); MEAN CELL VOLUME 87.1 fl (81.0-99.0); MEAN CORPUSCULAR HGB 27.6 pg (27.0-31.0); MEAN PLATELET VOLUME 9.6 fl (9.6-12.3); MONO # 0.8 10*3/uL (0.1-1.0); MONO % 6.0 % (3.0-9.0); NEUT # 9.4 10*3/uL (2.3-7.9); NEUT % 71.2 % (47.0-73.0); NUCLEATED RED BLOOD CELL 0.0 % (0.0-0.0); NUCLEATED RED BLOOD CELL 0.0 10*3/uL (0.0-0.0); PLATELET COUNT AUTOMATED 295 10*3/uL (130-400); RED CELL DISTRI WIDTH 13.6 % (0-14.5)
[2025-01-30 08:00] VITALS: BP 106/77
[2025-01-30] MEDS ORDERED: diazePAM 10 MG/2 ML SYR IV ONE (09:00)
[2025-01-30] MEDS ORDERED: GADOTERATE MEGLUMINE 10 MMOL/20 ML VIAL IV ONE (09:59)
[2025-01-30] MEDS ORDERED: SODIUM CHLORIDE 0.9% 50 ML IV ONE (09:59)
[2025-01-30 12:00] VITALS: BP 112/82
[2025-01-30] MEDS ORDERED: ASPIRIN ADULT L81 M2 PO (12:09)
[2025-01-30 12:10] VITALS: BP 112/82
== END 2025-01-30 12:43 | disposition home or self-care (01) ==
LOC: ED 16:45 → EDHOLD 18:15 → 5E 18:15
PROVIDERS: Emergency Medicine; Student in an Organized Health Care Education/Training Program; ADMIT Family Medicine; ATTEND Family Medicine
DX: G45.9 Transient cerebral ischemic attack, unspecified (principal); R20.2 Paresthesia of skin; D72.829 Elevated white blood cell count, unspecified; R20.0 Anesthesia of skin; R00.1 Bradycardia, unspecified; E78.5 Hyperlipidemia, unspecified; E55.9 Vitamin D deficiency, unspecified; J45.909 Unspecified asthma, uncomplicated; G43.909 Migraine, unspecified, not intractable, without status migrainosus; Z79.899 Other long term (current) drug therapy

== ENCOUNTER → 2025-02-07 | Outpatient (CLI) | payer OTHER ==
[~2025-02-07] MED LIST changes: +ADVIL200 M1 PO; +ASPIRIN ADULT L81 M2 PO; +ATORVASTATIN CA10 M1 PO; +MELATONIN3 MG PO; +TURMERIC500 M2 PO
== END ==
LOC: RESCLI 01:30 → LAB 04:14
PROVIDERS: ATTEND Internal Medicine
DX: R53.83 Other fatigue (principal)

== ENCOUNTER → 2025-04-20 | Outpatient (CLI) | payer OTHER | END | disposition home or self-care (01) | LOC: US 03:26 | PROVIDERS: ATTEND Nurse Practitioner Women's Health | DX: N93.9 Abnormal uterine and vaginal bleeding, unspecified (principal); N85.8 Other specified noninflammatory disorders of uterus ==

== ENCOUNTER 2025-05-02 10:23 | Emergency (ER) | payer OTHER ==
[~2025-05-02] VITALS: Ht 157.4 cm; Wt 93.0 kg
[2025-05-02] MEDS ORDERED: Acetaminophen/Oxycodone 5 MG/325 MG TABLET PO ONE (10:45)
[2025-05-02] MEDS ORDERED: TRAMADOL HCL50 MG PO (11:57)
== END 2025-05-02 12:02 | disposition home or self-care (01) ==
LOC: ED 10:23
DX: S80.02XA Contusion of left knee, initial encounter (principal); J45.909 Unspecified asthma, uncomplicated; M10.9 Gout, unspecified; K21.9 Gastro-esophageal reflux disease without esophagitis; Z98.890 Other specified postprocedural states; Z91.018 Allergy to other foods; Z91.013 Allergy to seafood; V89.2XXA Person injured in unspecified motor-vehicle accident, traffic, initial encounter; Y93.89 Activity, other specified; Y92.410 Unspecified street and highway as the place of occurrence of the external cause; Y99.8 Other external cause status

== ENCOUNTER → 2025-05-03 | Outpatient (CLI) | payer OTHER ==
[~2025-05-03] MED LIST changes: +TRAMADOL HCL50 MG PO
[2025-05-03 11:16] LABS: BUN 9 mg/dl (9-23); LDL CHOLESTEROL 82 mg/dL (9-159); SGPT/ALT 28 U/L (5-49)
== END | disposition home or self-care (01) ==
LOC: RESCLI 01:15 → LAB 01:15 → RESCLI 03:18
PROVIDERS: ATTEND Student in an Organized Health Care Education/Training Program
DX: I10 Essential (primary) hypertension (principal)

== ENCOUNTER 2025-06-12 16:37 | Emergency (ER) | payer OTHER ==
[~2025-06-12] VITALS: Ht 157.4 cm; Wt 90.7 kg
[2025-06-12 17:36] LABS: BASO # 0.1 10*3/uL (0.0-0.1); BASO % 0.6 % (0.0-1.0); EOS # 0.3 10*3/uL (0.0-0.4); EOS % 2.0 % (1.0-4.0); MEAN CELL VOLUME 86.4 fl (81.0-99.0); MEAN CORPUSCULAR HGB 27.7 pg (27.0-31.0); MEAN PLATELET VOLUME 8.9 fl (9.6-12.3); MONO # 0.7 10*3/uL (0.1-1.0); MONO % 5.1 % (3.0-9.0); NEUT # 10.4 10*3/uL (2.3-7.9); NEUT % 73.4 % (47.0-73.0); NUCLEATED RED BLOOD CELL 0.0 % (0.0-0.0); NUCLEATED RED BLOOD CELL 0.0 10*3/uL (0.0-0.0); PLATELET COUNT AUTOMATED 366 10*3/uL (130-400); RED CELL DISTRI WIDTH 13.1 % (0-14.5)
[2025-06-12 17:58] LABS: BUN 14 mg/dl (9-23)
== END 2025-06-12 20:15 | disposition home or self-care (01) ==
LOC: ED 16:37
PROVIDERS: Emergency Medicine
DX: R55 Syncope and collapse (principal); R42 Dizziness and giddiness; J45.909 Unspecified asthma, uncomplicated; M10.9 Gout, unspecified; E78.00 Pure hypercholesterolemia, unspecified; Z98.890 Other specified postprocedural states; Z91.010 Allergy to peanuts; Z91.018 Allergy to other foods